=== PATIENT | female | born 1990 | race Caucasian/White ===

== ENCOUNTER 2024-06-18 09:37 | Outpatient (CLI) | payer BC ==
[2024-06-18 10:57] LABS: BHCG - Serum Negative (NEGATIVE); Pregs Control Background? CLEAR/WHITE (CLR/WHITE); Pregs Control Bar Appear? YES (CONTROL BAR)
== END 2024-06-18 09:38 | disposition home or self-care (01) ==
LOC: LABBT 09:37
PROVIDERS: ATTEND Urology
DX: Z01.812 Encounter for preprocedural laboratory examination (principal); N20.1 Calculus of ureter
CPT/HCPCS: 84703; 87086

== ENCOUNTER 2024-06-25 08:20 | Day surgery (SDC) | payer BC ==
[2024-06-18 10:06] VITALS: BMI 23.3
[2024-06-25] MEDS ORDERED: Iopamidol 15 ML ONE ×2 (10:45)
[2024-06-25] MEDS ORDERED: Lidocaine 1% PF 5 ML VIAL ONE ×2 (10:53→10:55)
[2024-06-25] MEDS ORDERED: fentaNYL PF 100 MCG/2 ML SYRINGE ONE (10:53)
[2024-06-25] MEDS ORDERED: Rocuronium Bromide 10 MG/ML (10ML VIAL) ONE ×2 (10:53→10:55)
[2024-06-25] MEDS ORDERED: PROPOFOL 20 ML ONE (10:54)
[2024-06-25] MEDS ORDERED: Midazolam HCl 2 mg/2 ml Vial ONE (10:54)
[2024-06-25] MEDS ORDERED: LevoFLOXacin D5W 500 mg (100 mL) BAG ONE (10:57)
[2024-06-25] MEDS ORDERED: Ketamine In 0.9 % NaCl 50 MG/5 ML SYRINGE ONE (10:59)
[2024-06-25] MEDS ORDERED: Dexamethasone 4 mg/ml Vial ONE (11:21)
[2024-06-25] MEDS ORDERED: Ondansetron PF 4 MG/2 ML Vial ONE ×2 (11:21→14:12)
[2024-06-25] MEDS ORDERED: SUGAMMADEX SODIUM 200 MG/2 ML VIAL ONE (12:40)
[2024-06-25] MEDS ORDERED: fentaNYL 50 mcg/mL 1 mL Vial ONE ×2 (14:12→14:22)
[2024-06-25] MEDS ORDERED: HYDROcodone/Acetaminophen 5/325 mg Tablet ONE (15:12)
== END 2024-06-25 15:46 | disposition home or self-care (01) ==
LOC: SDC 08:20
PROVIDERS: ATTEND Urology
PROC: 0TC78ZZ Extirpation of Matter from Left Ureter, Via Natural or Artificial Opening Endoscopic (ICD-10-PCS; principal; 2024-06-25)
PROC: 0T778DZ Dilation of Left Ureter with Intraluminal Device, Via Natural or Artificial Opening Endoscopic (ICD-10-PCS; principal; 2024-06-25)
DX: N20.1 Calculus of ureter (principal); J45.909 Unspecified asthma, uncomplicated; G40.909 Epilepsy, unspecified, not intractable, without status epilepticus; Z79.899 Other long term (current) drug therapy
CPT/HCPCS: 74420; 82365; 88300; C1747; C2617; J1100; J1956; J2250; J2405; J2704; J3010; J3490; Q9967

== ENCOUNTER → 2024-07-02 | Day surgery (SDC) | payer BC ==
[~2024-07-02] MED LIST: Sodium Bicarbonate 2.5 MEQ/5 ML SDV ONE
== END ==
LOC: ULT 12:50
PROVIDERS: ATTEND Family Medicine
PROC: 0G9H3ZX Drainage of Right Thyroid Gland Lobe, Percutaneous Approach, Diagnostic (ICD-10-PCS; principal; 2024-07-02)
DX: E04.2 Nontoxic multinodular goiter (principal); R09.89 Other specified symptoms and signs involving the circulatory and respiratory systems; J45.909 Unspecified asthma, uncomplicated; Z90.89 Acquired absence of other organs; Z79.1 Long term (current) use of non-steroidal anti-inflammatories (NSAID); Z79.51 Long term (current) use of inhaled steroids; Z79.899 Other long term (current) drug therapy
CPT/HCPCS: 10005; 88173; 88305